=== PATIENT | female | born 1985 | race Caucasian/White ===

== ENCOUNTER 2018-03-26 05:44 | Inpatient (IN) | payer OTHER ==
[~2018-03-26] VITALS: Ht 162.6 cm; Wt 60.0 kg
[2018-03-26] MEDS: LACTATED RINGER'S 1,000 ML IV SCH ×3 (06:06→22:06)
[2018-03-26 06:11] VITALS: Ht 162.6 cm; Wt 60.0 kg
[2018-03-26] MEDS ORDERED: PREN-99 PO (06:12)
[2018-03-26] MEDS ORDERED: CARBOPROST 250 MCG INJ IM PRN (06:30)
[2018-03-26] MEDS ORDERED: OXYTOCIN 30 UNITS/LR 500 ML IV PRN (06:30)
[2018-03-26] MEDS ORDERED: CEFAZOLIN 2 GM/50 ML (PMX) 50 ML IVPB SCH (06:30)
[2018-03-26] MEDS ORDERED: METHYLERGONOVINE 0.2 MG INJ IM PRN (06:30)
[2018-03-26] MEDS ORDERED: MISOPROSTOL 200 MCG TAB PR PRN ×2 (06:30→08:00)
[2018-03-26] MEDS ORDERED: OXYTOCIN 30 UNITS/LR 500 ML BAG IV ONE (07:00)
--- NOTE | 2018-03-26 07:27 | PREAC ---
Date/Time of Note Date/Time of Note DATE: 03/26/18 TIME: 07:23 Anesthesia Eval and Record Evaluation Time Pre-Procedure Interview DATE: 03/26/18 TIME: 07:23 Age 32 Sex female NPO: 8 hrs Preoperative diagnosis Planned procedure repeat c/s with BTL Past Medical History Past Medical History: Includes Neuro: Other (syringomyelia, headaches, ) Surgery & Anesthesia Issues No known issue Meds Anticoagulation: No Beta Winnie within 24 hr: No Reason Beta Winnie not given: Pt. not on B-Winnie Reported Medications Vit #76/Iron,Carb/FA (Pnv 29-1 Tablet) 1 Each Tablet, 1 EACH PO, TAB 03/26/18 Current Medications Lactated Ringer's 1,000 ml @ 125 mls/hr Q8H IV ; Start 03/26/18 at 06:06 Cefazolin Sodium/ Dextrose 50 ml @ 100 mls/hr ONCE IVPB ; Start 03/26/18 at 06:30 Oxytocin/Lactated Ringer's 500 ml @ 125 mls/hr POST IV ; Start 03/26/18 at 06:30 Oxytocin/Lactated Ringer's 500 ml @ 0 mls/hr ONCE PRN IV .VAGINAL BLEEDING; Start 03/26/18 at 06:30 Methylergonovine Maleate (Methergine) 0.2 mg ONCE PRN IM .VAGINAL BLEEDING; Start 03/26/18 at 06:30 Carboprost Tromethamine (Hemabate) 250 mcg ONCE PRN IM .VAGINAL BLEEDING; Start 03/26/18 at 06:30 Misoprostol (Cytotec) 1,000 mcg ONCE PRN NV .VAGINAL BLEEDING; Start 03/26/18 at 06:30 Meds reviewed: Yes Allergies Coded Allergies: morphine (Verified Adverse Reaction, Severe, anaphylaxis, 03/26/18) Allergies Reviewed: Yes Labs/Studies Labs Reviewed: Reviewed by anesthesiologist Result Diagram: 03/26/18 0620 Laboratory Tests 03/26/18 06:20 test: Positive Pre-procedure Exam Airway: Adequate mouth opening, Adequate thyromental dist Mallampati: Mallampati II Teeth: Normal Lung: Normal Heart: Normal ASA Physical Status ASA physical status: 2 Emergency: None Planned Anesthetic General/MAC: ETT Neuraxial: Spinal (pt has had 2 spinal anesthetics with her prevoius c/s. Risks of GETA vs spinal discussed with pt. She states she had issues walking after her first spinal but did perfectly fine after her 2nd spinal anesthetic. Would like to plan for spinal with 27GA needle. ) Planned Pain Management Sub-arachniod narcotics Pre-operative Attestations Prior to commencing anesthesia and surgery, the patient was re-evaluated, there was verification of: *The patient's identity *The results of appropriate recent lab work and preoperative vital signs *The above evaluation not changing prior to induction *Anesthetic plan, risk benefits, alternative and complications discussed with p atient/family; questions answered; patient/family understands, accepts and wishes to proceed. RAD ZURITA Mar 26, 2018 07:27
--- NOTE | 2018-03-26 07:40 | HP ---
Date/Time of Note Date/Time of Note DATE: 03/26/18 TIME: 07:36 OB - History Hx of Present Free Text/Dictation 32 YO with history of previous deliveries x 2, who desires to have repeat delivery and Permanent sterilization. I discussed with the patient the risks, benefits, indications, and alternatives of procedure including but not limited to risks of infection, bleeding, damage to other organs, bowel, bladder, hernia formation, scar formation, possibility of blood transfusion, possible need for emergency hysterectomy, as well as the fact that tubal ligation may fail and there is 1 to 2% risk of failure over lifetime of tubal ligations and the fact that tubal ligation is permanent and irreversible. She was allowed to ask questions. All her questions were answered. Informed consent has been obtained. Care: Good Care Ultrasounds: Normal mid trimester US Obstetrical Complications: Other (Asthma, Rheumatoid Arhritis, Syringomyelia, ankylosis spondolytis, Anemia, AFP + ) Medical Complications: Other (Asthma, Rheumatoid Arhritis, Syringomyelia, ankylosis spondolytis, Anemia) Past Family/Social History * Past Medical, Surgical, Family and Obstetric Histories reviewed from chart. OB Admission Exam Physical Exam HEENT: WNL Heart: Rhythm Normal Lungs: Clear, Equal Abdomen: WNL Extremities: Normal Reflexes: Normal Last 72 hours Lab Results CBC & BMP 03/26/18 06:20 OB Assessment/Plan Other Assessment: Assessment: IUP 39 weeks h/o previous Desires repeat Desires permanent sterilization Other plan: Repeat Delivery Tubal ligation may be done by either salpingectomy or modified [place] BTL KERVIN CALVO MD Mar 26, 2018 07:40
[2018-03-26] MEDS ORDERED: LACTATED RINGER'S 1,000 ML IV SCH (07:41)
[2018-03-26] MEDS ORDERED: FENTAnyl 50 MCG/ML VIAL ONE ×4 (07:56→09:01)
[2018-03-26] MEDS ORDERED: NALOXONE (0.4 MG/ML) INJ IV PRN ×2 (08:00→10:00)
[2018-03-26] MEDS ORDERED: HYDROmorphONE 0.2 MG/ML PCA IV SCH ×2 (08:00→11:00)
[2018-03-26] MEDS ORDERED: NA PHOSPHATE/BIPHOS 133 ML ENEMA PR PRN (08:00)
[2018-03-26] MEDS ORDERED: LANOLIN HPA 1 PKT TOP PRN (08:00)
[2018-03-26] MEDS ORDERED: PHENYLephrine 10 MG INJ ONE (08:05)
[2018-03-26] MEDS ORDERED: PHENYLephrine (100 MCG/ML) 10ML SYG ONE (08:05)
[2018-03-26] MEDS ORDERED: SUCCINYLCHOLINE CHLORIDE 100 MG/5 ML SYG IV ONE (08:46)
[2018-03-26] MEDS ORDERED: LIDOCAINE 100 MG SYRINGE ONE (08:46)
[2018-03-26] MEDS ORDERED: PROPOFOL 20 ML ONE (08:46)
[2018-03-26] MEDS: SENNA/DOCUSATE NA (8.6MG/50MG) TAB PO SCH ×2 (09:00→21:00)
[2018-03-26] MEDS ORDERED: HYDROmorphONE 2 MG/ML SYG ONE (09:04)
[2018-03-26] MEDS ORDERED: KETOROLAC 30 MG INJ ONE (09:14)
--- NOTE | 2018-03-26 09:29 | OPR ---
Date/Time of Note Date/Time of Note DATE: 03/26/18 TIME: 09:13 Operative Report Procedure Date: Mar 26, 2018 Preoperative Diagnosis 1. Term , history of previous delivery: 2. Desires repeat delivery. 3. Desires permanent sterilization Postoperative Diagnosis 1. Term , history of previous delivery: 2. Desires repeat delivery. 3. Desires permanent sterilization Operation/Procedure Performed repeat delivery bilateral salpingectomies Surgeon Madison Alicea MD Engineer Intern Dr. Ahmadi Anesthesia Type: general Estimated Blood Loss: other (700) Transfusion none Specimen bilateral segments of tubes Grafts/Implants none Tubes/Drains Jesus Cath Complications none Pt Condition Post Procedure: stable Disposition: PACU Procedure Description The risks, benefits, indications, alternatives of procedure including, but not limited to risk of infection, bleeding, damage to other organs, bowel, bladder, hernia formation, scar formation, possibility of blood transfusions, the risks of tubal ligation such as failure and future pregnancies were discussed with the patient. The fact that BTL is permanent and irreversible also discussed with patient. She was allowed to ask questions. All her questions were answered. Informed consent was obtained. DESCRIPTION OF PROCEDURE: She was taken to the operating room. Jesus Cath was inserted by RN. She was prepped and draped in the usual sterile fashion. Surgical time out one. General anesthesia was induced.. With permission from anesthesiologist, a knife was used to make a Pfannenstiel skin incision. The incision was taken down in layers. The fascia was cut, undermined and from the underlying muscle using sharp and blunt dissection. All the bleeders were cauterized. Peritoneum was entered bluntly. A low transverse incision was developed over the uterus. Amniotic fluid was clear and adequate. A viable in vertex presentation was delivered without any difficulty. The cord was clamped and cut, handed to awaiting team. Placenta was then delivered. Uterus was exteriorized, wrapped around a moist lap. Inside uterus was cleaned using a dry lap. All residual membranes were removed. The uterine incision was then closed using #1 Monocryl in 2 layers. A 5 cm distal end of the right tube was ligated 3 times using 0 plain tie and the ligated portion was cut, sent to p athology. Same procedure was done on the contralateral side. The uterus was inserted back inside the abdominal cavity. Irrigation was done carefully. Careful evaluation of the uterine incision revealed no further bleeding. The tubal ligation sites were evaluated carefully. There was no bleeding. The peritoneum and rectus muscles and fascia were evaluated. All bleeders caute rized. Peritoneum was closed using 2-0 Monocryl. At this time, the count was correct. Rectus muscle was reapproximated using 2-0 Monocryl. Rectus fascia was closed using #1 Vicryl. Subcutaneous tissue was cleaned and irrigated. All bleeders cauterized and the skin closed using 4-0 Monocryl. All counts correct. MADISON ALICEA MD Mar 26, 2018 09:26
[2018-03-26] MEDS: OXYTOCIN 30 UNITS/LR 500 ML IV SCH ×2 (09:33→13:12)
--- NOTE | 2018-03-26 09:35 | PAC ---
Date/Time of Note Date/Time of Note DATE: 03/26/18 TIME: 09:35 Post-Anesthesia Notes Post-Anesthesia Note Activity: WNL Respiratory function: WNL Cardiovascular function: WNL Mental status: Baseline Pain reasonably controlled: Yes Hydration appropriate: Yes Nausea/Vomiting absent: Yes RAD ZURITA Mar 26, 2018 09:35
[2018-03-26] MEDS ORDERED: KETOROLAC 30 MG INJ IV PRN (10:00)
[2018-03-26] MEDS ORDERED: HYDROmorphONE 1 MG/ML SYG IV ONE ×2 (10:00→10:30)
[2018-03-26] MEDS ORDERED: ONDANSETRON 4 MG INJ IV PRN ×2 (10:00)
[2018-03-26] MEDS ORDERED: DIPHENHYDRAMINE 50 MG INJ IV PRN ×2 (10:00)
[2018-03-26] MEDS ORDERED: FENTAnyl 50 MCG/ML VIAL IV PRN ×3 (10:00)
[2018-03-26] MEDS ORDERED: HYDROmorphONE 0.5 MG/0.5 ML SYG IV PRN ×2 (10:00)
[2018-03-26] MEDS ORDERED: HYDROmorphONE 1 MG/5 ML IV SYRINGE IV PRN ×3 (10:00)
[2018-03-26] MEDS ORDERED: METOCLOPRAMIDE 10 MG INJ IV PRN (10:00)
[2018-03-26] MEDS ORDERED: ALBUTEROL 0.083% (NEB) 2.5 MG/3 ML AMP HHN PRN (10:00)
[2018-03-26] MEDS ORDERED: HYDROmorphONE 2 MG/ML SYG IV STA (11:26)
[2018-03-26] MEDS ORDERED: HYDROmorphONE 2 MG TAB PO ONE (11:30)
[2018-03-26] MEDS: IBUPROFEN 600 MG TAB PO SCH ×2 (12:00→18:00)
[2018-03-26 13:00] VITALS: BP 102/59; PULSE 97; RESP 16
[2018-03-26 16:00] VITALS: BP 98/60; PULSE 73; RESP 18
[2018-03-26] MEDS: KETOROLAC 30 MG INJ IV PRN (17:59)
--- NOTE | 2018-03-26 19:02 | NUR ---
E.O.S.S. PATIENT IS STABLE. 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
[2018-03-27] MEDS: LACTATED RINGER'S 1,000 ML IV SCH ×3 (01:15→22:06)
[2018-03-27] MEDS: KETOROLAC 30 MG INJ IV PRN ×2 (01:21→08:22)
[2018-03-27 04:00] VITALS: BP_SYST 101; BP_SYST 99; BP_DIAS 57; BP_DIAS 62; PULSE 72; PULSE 79; RESP 18
[2018-03-27] MEDS: IBUPROFEN 600 MG TAB PO SCH ×5 (06:00→23:56)
--- NOTE | 2018-03-27 06:40 | NUR ---
PT USING RETAIL [employer]ER FOR PAIN MANAGEMENT. FUNDUS FIRM WITH SMALL LOCHIA. BONDING WELL WITH . MOM DOING COMBO FEEDINGS OF BREAST AND FORMULA. MOVING TOWARDS GOALS.
--- NOTE | 2018-03-27 06:48 | QN ---
Documentation Comment s/p c/s Subjective: no complaint Objective: Afebrile, VSS NAD A&O Abdomen: soft, appropriate tender Incision: no sign of bleeding/infection mild lochia Extremity: 1+ edema bilaterally Assessment: S/p C/S Recovering Well Plan: current care KERVIN CALVO MD Mar 27, 2018 06:48
[2018-03-27 07:45] VITALS: BP 97/60; PULSE 80; RESP 18
[2018-03-27] MEDS: SENNA/DOCUSATE NA (8.6MG/50MG) TAB PO SCH ×2 (08:22→20:27)
--- NOTE | 2018-03-27 10:20 | NUR ---
SPOKE WITH TATYANA SALDIVAR TO CHECK PATIENTS OWN HEATING PAD.JANNA STATED HES COMING LATER TO CHECK THE HEATING PAD.
[2018-03-27] MEDS: HYDROCODONE/APAP (5/325) TAB PO PRN ×3 (12:36→23:55)
--- NOTE | 2018-03-27 15:29 | NUR ---
ASSUME PLAN OF CARE FROM DENTON COFFEY RN
[2018-03-27 15:37] VITALS: BP 101/70; PULSE 83; RESP 18
--- NOTE | 2018-03-27 18:46 | NUR ---
EODSS CONDITION IS STABLE. AFEBRILE ALL SHIFT. INSTRUCTED MOM IN BREAST CARE SHE WILL BE BOTTLE FEEDING ONLY. NEEDS TO GET UP AND WALK MORE IN THE HALLWAYS TO HELP PASS GAS. NO EXCESSIVE BLEEDING. DECLINES TO HAVE DRESSING REMOVED, WILL DO SO WHEN SHE SHOWERS TONIGHT OR IN THE MORNING
[2018-03-27 20:00] VITALS: BP 101/66; PULSE 76; RESP 19
[2018-03-28 04:00] VITALS: BP 102/60; PULSE 76; RESP 18
--- NOTE | 2018-03-28 05:34 | NUR ---
EOSS: PATIENT IS IN STABLE CONDITION. PATIENT C/O PAIN, IMPROVED WITH MEDICATION, YET NOT COMPLETELY EFFECTIVE. PATIENT IS BONDING WELL WITH INFANT. FEEDING FORMULA VIA BOTTLE, MOTHER'S PREFERENCE. FUNDUS IS FIRM AT UMBILICUS WITH SCANT AMOUNT OF LOCHIA. PATIENT AMBULATING AND ABLE TO VOID, DUE TO BM. PATIENT STATED THAT SHE WILL SHOWER WHEN SHE FEELS READY. PATIENT WAS EDUCATED TO WET THE C/S DRESSING SO THAT IT MAY BE REMOVED BEFORE GOING HOME. PATIENT STATED THAT SHE UNDERSTOOD AND HAD NO QUESTIONS. PATIENT STATED PREFERENCE TO NOT SWADDLE . PATIENT IS AFEBRILE.
[2018-03-28] MEDS: IBUPROFEN 600 MG TAB PO SCH ×2 (06:14→12:00)
[2018-03-28 08:05] VITALS: BP 99/61; PULSE 69; RESP 16
[2018-03-28] MEDS: SENNA/DOCUSATE NA (8.6MG/50MG) TAB PO SCH (09:00)
--- NOTE | 2018-03-28 11:35 | NUR ---
DISCHARGED IN STABLE CONDITION WITH BABY. Addendum: 03/28/18 at 1236 by MOMO SANDERSON RN PATIENT IS NOW BEING DISCHARGED.
--- NOTE | 2018-03-28 12:27 | DS ---
Date/Time of Note Date/Time of Note DATE: 03/28/18 TIME: 12:26 Obstetrical Discharge Record Final Diagnosis Final Diagnosis: Term delivered Vaginal Delivery Obstetrical Delivery: Bilateral Tubal Ligation Section Section: Repeat Complications Augmentation: No Induction: No Rupture of Membranes: No Condition on Discharge Physical Assessment Voiding: Yes Bowel Movement: Yes Breast: Soft, non-tender, Filling Fundus: Firm Abdomen and Incision: soft, appropriate tender. incision is intact without any sign of infection. Calf Tenderness: No Patient Condition: Good KERVIN CALVO MD Mar 28, 2018 12:27
[2018-03-29] MEDS ORDERED: MEASLES,MUMPS,RUBELLA VACCINE INJ SC* ONE (09:00)
[2018-03-29] MEDS ORDERED: DIPHTH/TET/ACEL PERTUSS (ADULT) 0.5 ML VIAL IM* ONE (09:00)
== END 2018-03-28 12:35 | disposition home or self-care (01) | DRG 785 ==
LOC: L-D 05:44 → PP1 12:53
PROVIDERS: ADMIT Specialist; ATTEND Specialist
PROC: 0UB70ZZ Excision of Bilateral Fallopian Tubes, Open Approach (ICD-10-PCS; 2018-03-26)
PROC: 10D00Z1 Extraction of Products of Conception, Low, Open Approach (ICD-10-PCS; principal; 2018-03-26 07:30)
DX: O34.219 Maternal care for unspecified type scar from previous cesarean delivery (principal); Z30.2 Encounter for sterilization; M06.9 Rheumatoid arthritis, unspecified; Z3A.39 39 weeks gestation of pregnancy; Z37.0 Single live birth; O75.89 Other specified complications of labor and delivery
CPT/HCPCS: 85025; 85610; 85730; 86592; 86850; 86870; 86900; 86901; 87340; 88302; 99464; J0690; J1170; J1885; J2001; J2370; J2590; J3010; J7120